=== PATIENT | female | born 1995 | race Caucasian/White ===

== ENCOUNTER 2017-06-09 15:21 | Outpatient (CLI) | payer MEDICAID, OTHER ==
[2017-06-09] MEDS ORDERED: DUONEB *Not for PRN Use IH ONE ×2 (18:25→18:28)
[2017-06-09] MEDS ORDERED: PROVENTIL IH ONE (19:24)
--- NOTE | 2017-06-09 19:33 | Emergency Department Report ---
- General Chief Complaint: Upper Respiratory Infection Stated Complaint: CONGESTION/COLD S/S Time Seen by Provider: 06/09/17 17:52 Source: patient Mode of arrival: Ambulatory Limitations: No Limitations - History of Present Illness Initial Comments: 22 yo female with a past medical history of exercise-induced bronchospasm presents to the hospital currently 23 weeks with complaints of nasal congestion and shortness of breath. Patient states that nasal congestion has been going on for about 1 week and seemed to improve yesterday but then worsened again today. Patient describes shortness of breath as "feeling like I cannot get in enough air". She denies dyspnea on exertion, chest pain, Tenderness, or leg edema. No cough reported. Denies fever. - Related Data Previous Rx's Medication Instructions Recorded Last Taken Type Acetaminophen/Codeine [Tylenol #3] 1 tab PO Q6H PRN #20 tab 11/06/13 Unknown Rx Ibuprofen [Motrin] 400 mg PO Q6H PRN #20 tablet 11/06/13 Unknown Rx Allergies Allergy/AdvReac Type Severity Reaction Status Date / Time No Known Allergies Allergy Unverified 11/06/13 23:33 ED Review of Systems ROS: Stated complaint: CONGESTION/COLD S/S Other details as noted in HPI Comment: All other systems reviewed and negative Other: Constitutional: No fevers chills Eyes: No eye pain visual changes ENT: No ear pain or throat pain Neck: Denies pain Respiratory: As per HPI Cardiovascular: Denies chest pain, palpitations, syncope GI: Denies abdominal pain : Denies dysuria Musculoskeletal: Denies back pain, joint swelling Skin: Denies rash, lesions, erythema Neurologic: Denies headache, numbness, weakness Psychiatric: Denies suicidal ideation, hallucinations ED Past Medical Hx - Past Medical History Hx Asthma: No - Surgical History Past Surgical History?: Yes Hx Appendectomy: Yes - Social History Smoking Status: Never Smoker Substance Use Type: None - Medications Home Medications: Home Medications Medication Instructions Recorded Confirmed Last Taken Type Acetaminophen/Codeine [Tylenol #3] 1 tab PO Q6H PRN #20 tab 11/06/13 Unknown Rx Ibuprofen [Motrin] 400 mg PO Q6H PRN #20 tablet 11/06/13 Unknown Rx ED Physical Exam - General Limitations: No Limitations - Other Other exam information: General: No limitations, patient is alert in no acute distress Head exam: Atraumatic, normocephalic Eyes exam: Normal appearance, pupils equal reactive to light, extraocular movements intact ENT: Moist mucous membrane, nasal congestion Neck exam: Normal inspection, full range of motion, no meningismus nontender Respiratory exam: Clear to auscultation bilateral, no wheezes, rales, crackles Cardiovascular: Normal rate and rhythm, normal heart sounds Abdomen: Soft, nondistended, and nontender, with normal bowel sounds, no rebound, or guarding. Gravid abdomen Extremity: Full range of motion normal inspection no deformity, no calf tenderness or edema Back: Normal Inspection, full range of motion, no tenderness Neurologic: Alert, oriented x3, cranial nerves intact, no motor or sensory deficit Psychiatric: normal affect, normal mood Skin: Warm, dry, intact ED Course Vital Signs 06/09/17 06/09/17 06/09/17 15:40 19:00 19:28 Temperature 98.1 F Pulse Rate 97 H Pulse Rate [ 110 H 82 Bilateral] Respiratory 16 Rate Respiratory 20 15 Rate [Bilateral ] Blood Pressure Blood Pressure 97/41 [Left] O2 Sat by Pulse 97 Oximetry 06/09/17 21:05 Temperature Pulse Rate 120 H Pulse Rate [ Bilateral] Respiratory Rate Respiratory Rate [Bilateral ] Blood Pressure 102/57 Blood Pressure [Left] O2 Sat by Pulse 99 Oximetry - Reevaluation(s) Reevaluation #1: 06/09/17 During ED stay patient describes dyspnea as "feeling like I'm not getting enough air". History of exercise-induced asthma patient so pt was treated with bronchodilators. Initial peak flow was 240. (predictive 431). After DuoNeb patient reported no change and therefore albuterol 5 mg given. Lungs remained clear before and after treatment. After receiving peak flow unchanged remained 250 and patient continues to complain of shortness of breath therefore labs, chest x-ray, and CT angiogram chest ordered at that time to rule out lung pathology. ED Medical Decision Making - Lab Data Result diagrams: 06/09/17 20:28 06/09/17 20:28 Lab Results 06/09/17 06/09/17 06/09/17 Range/Units 20:28 20:28 20:28 WBC 8.7 (4.5-11.0) K/mm3 RBC 2.98 L (3.65-5.03) M/mm3 Hgb 9.4 L (10.1-14.3) gm/dl Hct 26.8 L (30.3-42.9) % MCV 90 (79-97) fl MCH 31 (28-32) pg MCHC 35 H (30-34) % RDW 12.6 L (13.2-15.2) % Plt Count 232 (140-440) K/mm3 Lymph % (Auto) 25.3 (13.4-35.0) % [place] % (Auto) 5.5 (0.0-7.3) % Eos % (Auto) 1.2 (0.0-4.3) % Baso % (Auto) 0.3 (0.0-1.8) % Lymph # 2.2 (1.2-5.4) K/mm3 [place] # 0.5 (0.0-0.8) K/mm3 Eos # 0.1 (0.0-0.4) K/mm3 Baso # 0.0 (0.0-0.1) K/mm3 Seg Neutrophils % 67.7 (40.0-70.0) % Seg Neutrophils # 5.9 (1.8-7.7) K/mm3 PT 13.1 (12.2-14.9) Sec. INR 0.94 (0.87-1.13) Sodium 139 (137-145) mmol/L Potassium 2.4 L* (3.6-5.0) mmol/L Chloride 101.3 (98-107) mmol/L Carbon Dioxide 20 L (22-30) mmol/L Anion Gap 20 mmol/L BUN 7 (7-17) mg/dL Creatinine 0.4 L (0.7-1.2) mg/dL Estimated GFR > 60 ml/min BUN/Creatinine Ratio 18 % Glucose 106 H (65-100) mg/dL Calcium 8.1 L (8.4-10.2) mg/dL Magnesium 1.60 L (1.7-2.3) mg/dL Total Bilirubin 0.20 (0.1-1.2) mg/dL AST 19 (5-40) units/L ALT 16 (7-56) units/L Alkaline Phosphatase 61 (35-129) units/L Total Protein 6.0 L (6.3-8.2) g/dL Albumin 3.5 L (3.9-5) g/dL Albumin/Globulin Ratio 1.4 % - EKG Data -: EKG Interpreted by Me (sinus ) EKG shows normal: sinus rhythm, axis (qrs 65), QRS complexes (81), ST-T waves ( no stemi) Rate: tachycardia (119) - Radiology Data Radiology results: image reviewed Chest x-ray: No acute findings CT angiogram chest: No pulmonary emboli, no infiltrates, bibasilar atelectasis. Benign cyst in the right upper lobe - Medical Decision Making Other differential URI Patient be admitted to the hospital for significant hypokalemia and associated hypomagnesemia. I suspect that dyspnea is secondary to dyspnea since patient did not receive any improvement with bronchodilators and CT angiogram chest is negative. pt sinus tach on monitor after albuterol Meds ordered in the ED liquid potassium 40 mEq, magnesium 2 g IV, potassium chloride 20 mg IV - Differential Diagnosis bronchitis, pneumonia, reactive airway disease, dyspnea , sinusiti Critical Care Time: No Critical care attestation.: If time is entered above; I have spent that time in minutes in the direct care of this critically ill patient, excluding procedure time. ED Disposition Clinical Impression: Nasal congestion, Hypokalemia, Hypomagnesemia, Dyspnea, 23 weeks gestation of , Anemia Disposition: -09 OP ADMIT IP TO THIS HOSP Is pt being admited?: Yes Condition: Stable Time of Disposition: 22:18 (DR Guerra/hosp)
[2017-06-09] MEDS ORDERED: NACL ONE (20:37)
[2017-06-09 20:44] LABS: Basophils % (Auto) 0.3 % (0.0-1.8); Eosinophils % (Auto) 1.2 % (0.0-4.3); Hematocrit 26.8 % (30.3-42.9); Hemoglobin 9.4 gm/dl (10.1-14.3); Mean Corpuscular HGB Conc 35 % (30-34); Mean Corpuscular Hemoglobin 31 pg (28-32); Mean Corpuscular Volume 90 fl (79-97); Platelet Count 232 K/mm3 (140-440); Red Blood Count 2.98 M/mm3 (3.65-5.03); Red Cell Distribution Width 12.6 % (13.2-15.2); White Blood Count 8.7 K/mm3 (4.5-11.0)
[2017-06-09 20:54] LABS: INR 0.94 (0.87-1.13)
[2017-06-09 21:26] LABS: Anion Gap 20 mmol/L; BUN/Creatinine Ratio 18; Blood Urea Nitrogen 7 mg/dL (7-17); Calcium 8.1 mg/dL (8.4-10.2); Carbon Dioxide 20 mmol/L (22-30); Chloride 101.3 mmol/L (98-107); Glucose 106 mg/dL (65-100); Sodium 139 mmol/L (137-145)
--- NOTE | 2017-06-09 21:26 | XRay Report ---
FINAL REPORT EXAM: XR CHEST 1V AP HISTORY: sob, COMPARISON: None available. FINDINGS: Frontal view(s) of the chest obtained. Cardiac silhouette within normal limits. No gross consolidation or effusion. No pneumothorax. IMPRESSION: No grossly acute findings.
[2017-06-09 21:38] LABS: Potassium 2.4 mmol/L (3.6-5.0)
[2017-06-09] MEDS ORDERED: K-DUR PO ONE (21:38)
[2017-06-09] MEDS ORDERED: POTASSIUM CHLORIDE PO ONE (21:41)
--- NOTE | 2017-06-09 21:50 | Cat Scan Report ---
FINAL REPORT EXAM: CT ANGIO CHEST HISTORY: sob, COMPARISON: None available. TECHNIQUE: Contiguous axial images were obtained. Additional sagittal and coronal reformatted images were obtained. Administration of IV contrast given per institution protocol. Images submitted for interpretation. FINDINGS: Heart normal in size. Thoracic aorta normal in caliber. No dissection. No pulmonary embolus. No pathologically enlarged intrathoracic or axillary lymph nodes. Benign pulmonary cyst in the right upper lobe measuring 6 millimeters. Mild atelectasis at the dependent portions of the lungs. No dense consolidation or effusion. Tracheobronchial tree is patent. Visualized upper abdomen is grossly unremarkable. Bony thorax is intact. IMPRESSION: No pulmonary embolus. No acute infiltrates or effusions.
[2017-06-09] MEDS ORDERED: MAGNESIUM SULFATE 2GM/50ML 2 GM/50 ML BAG IV ONE (21:53)
[2017-06-09 22:18] LABS: Alanine Aminotransferase 16 units/L (7-56); Albumin 3.5 g/dL (3.9-5); Albumin/Globulin Ratio 1.4 %; Alkaline Phosphatase 61 units/L (35-129)
[2017-06-09 22:22] LABS: Bilirubin,Direct < 0.2 mg/dL (0-0.2)
[2017-06-09] MEDS ORDERED: ZOFRAN IV ONE (23:10)
[2017-06-10] MEDS: KCL 10MEQ/100ML 10 MEQ/100 ML BAG IV SCH ×2 (01:30→06:46)
[2017-06-10] MEDS ORDERED: NACL 0.9% 250ML 250 ML ONE (02:32)
[2017-06-10] MEDS ORDERED: KCL 10MEQ/100ML 10 MEQ/100 ML BAG IV ONE (05:27)
[2017-06-10] MEDS ORDERED: NACL 0.9% 1000 ML 1,000 ML ONE (05:38)
[2017-06-10] MEDS ORDERED: NACL 0.9% 1000 ML 1,000 ML IV ONE (05:40)
[2017-06-10 07:27] VITALS: BP 104/58
[2017-06-10 07:56] LABS: Alanine Aminotransferase 16 units/L (7-56); Albumin 3.2 g/dL (3.9-5); Albumin/Globulin Ratio 1.2 %; Alkaline Phosphatase 64 units/L (35-129); Bilirubin,Direct < 0.2 mg/dL (0-0.2); Bilirubin,Total < 0.20 mg/dL (0.1-1.2); Total Protein 5.9 g/dL (6.3-8.2)
[2017-06-10] MEDS ORDERED: LACTATED RINGERS 500 ML IV ONE (10:30)
== END 2017-06-10 08:59 | disposition home or self-care (01) ==
LOC: ED 15:21 → TRG 15:21
PROVIDERS: ATTEND Obstetrics & Gynecology
DX: O99.512 Diseases of the respiratory system complicating pregnancy, second trimester (principal); J98.11 Atelectasis; J98.4 Other disorders of lung; J00 Acute nasopharyngitis [common cold]; R06.02 Shortness of breath; R09.89 Other specified symptoms and signs involving the circulatory and respiratory systems; Z3A.23 23 weeks gestation of pregnancy
CPT/HCPCS: 36415; 71010; 71275; 80048; 80074; 83735; 84132; 85025; 85610; 93005; 93010; 94640; 96360; J2405; J3475; J3480; J7030; J7050; Q9967; 96361

== ENCOUNTER 2020-04-06 13:48 | Emergency (ER) | payer OTHER ==
--- NOTE | 2020-04-06 14:47 | Event Note ---
ED Screening Note Date of service: 04/06/20 Time: 14:43 ED Screening Note: 24-year-old female presents as approximately 15 weeks gestation complaining of pelvic cramping with some vaginal spotting x today obgyn; not yet, change in insurance. LMP 12/21/2019 This initial assessment/diagnostic orders/clinical plan/treatment(s) is/are subject to change based on patients health status, clinical progression and re- assessment by fellow clinical providers in the ED. Further treatment and workup at subsequent clinical providers discretion. Patient/guardian urged not to elope from the ED as their condition may be serious if not clinically assessed and managed. Initial orders include: labs us
[2020-04-06 14:49] VITALS: BP 110/60
[2020-04-06 16:00] LABS: Bilirubin,Urine NEG (Negative); Blood,Urine NEG (Negative); Calcium Oxalate Crystals,Urine 1+; Color,Urine Yellow (Yellow); Mucus,Urine 3+ /HPF; Protein,Urine <15 mg/dL mg/dL (Negative); Urobilinogen,Urine < 2.0 mg/dL (<2.0)
[2020-04-06 16:01] LABS: Basophils # (Auto) 0.1 K/mm3 (0.0-0.1); Basophils % (Auto) 0.7 % (0.0-1.8); Eosinophils # (Auto) 0.4 K/mm3 (0.0-0.4); Hematocrit 30.9 % (30.3-42.9); Hemoglobin 10.8 gm/dl (10.1-14.3); Lymphocytes # (Auto) 1.4 K/mm3 (1.2-5.4); Lymphocytes % (Auto) 18.3 % (13.4-35.0); Mean Corpuscular HGB Conc 35 % (30-34); Mean Corpuscular Volume 89 fl (79-97); Monocytes # (Auto) 0.5 K/mm3 (0.0-0.8); Monocytes % (Auto) 6.6 % (0.0-7.3); Platelet Count 262 K/mm3 (140-440); Red Blood Count 3.48 M/mm3 (3.65-5.03); Red Cell Distribution Width 14.1 % (13.2-15.2)
--- NOTE | 2020-04-06 16:53 | Ultrasound Report ---
OBSTETRIC ULTRASOUND INDICATION: pelv pain COMPARISON: No prior relevant imaging studies are available for comparison. TECHNIQUE: Transabdominal imaging was performed. FINDINGS: Single viable intrauterine is identified. Heart rate: 155 bpm. measurements are as follows: Biparietal diameter 2.9 cm, 15 weeks 1 day Head circumference 10.7 cm, 15 weeks 1 day Abdominal circumference 8.3 cm, 14 weeks 5 days Femur length 1.6 cm, 14 weeks 6 days Amniotic fluid index is subjectively within normal limits. No placental abnormalities are seen. Cerv ix is closed measuring approximately 3 cm. CONCLUSION: Single viable intrauterine with sonographic gestational age of 15 weeks, 0 days. Signer Name: Nolan Sher MD Signed: 04/06/2020 4:49 PM Workstation Name: [id number]
--- NOTE | 2020-04-06 17:20 | Emergency Department Report ---
ED Female HPI - General Chief complaint: Vaginal Bleeding Stated complaint: ABD PAINS PREG Time Seen by Provider: 04/06/20 17:13 Source: patient Mode of arrival: Ambulatory Limitations: No Limitations - History of Present Illness Initial comments: 24-year-old female presents emergency department complaining of pelvic pain and cramping which started after her 2-year-old son jumped onto her stomach so she came to emerge department for further evaluation treatment options reports no nausea vomiting no dysuria Complaint: vaginal bleeding (Spotting) Radiation: suprapubic Quality: dull Consistency: constant Improves with: none Worsens with: none Associated Symptoms: vaginal bleeding. denies: abdominal pain, nausea/vomiting, headaches, loss of appetite, dysuria, hematuria, shortness of breath, syncope, weakness - Related Data Previous Rx's Medication Instructions Recorded Last Taken Type Acetaminophen/Codeine [Tylenol #3] 1 tab PO Q6H PRN #20 tab 11/06/13 Unknown Rx Ibuprofen [Motrin] 400 mg PO Q6H PRN #20 tablet 11/06/13 Unknown Rx Allergies Allergy/AdvReac Type Severity Reaction Status Date / Time No Known Allergies Allergy Unverified 11/06/13 23:33 ED Review of Systems ROS: Stated complaint: ABD PAINS PREG Other details as noted in HPI Comment: All other systems reviewed and negative ED Past Medical Hx - Past Medical History Previous Medical History?: No Hx Asthma: No - Surgical History Past Surgical History?: Yes Hx Appendectomy: Yes - Social History Smoking Status: Never Smoker Substance Use Type: None - Medications Home Medications: Home Medications Medication Instructions Recorded Confirmed Last Taken Type Acetaminophen/Codeine [Tylenol #3] 1 tab PO Q6H PRN #20 tab 11/06/13 Unknown Rx Ibuprofen [Motrin] 400 mg PO Q6H PRN #20 tablet 11/06/13 Unknown Rx ED Physical Exam - General Limitations: No Limitations General appearance: alert, in no apparent distress - Head Head exam: Present: atraumatic, normocephalic - Eye Eye exam: Present: normal appearance, PERRL, EOMI Pupils: Present: normal accommodation - ENT ENT exam: Present: normal exam, normal orophraynx, mucous membranes moist, TM's normal bilaterally - Neck Neck exam: Present: normal inspection, full ROM - Respiratory Respiratory exam: Present: normal lung sounds bilaterally. Absent: respiratory distress, wheezes, rhonchi - Cardiovascular Cardiovascular Exam: Present: regular rate, normal rhythm. Absent: systolic murmur, diastolic murmur, rubs, gallop - GI/Abdominal GI/Abdominal exam: Present: soft, normal bowel sounds - Extremities Exam Extremities exam: Present: normal inspection - Back Exam Back exam: Present: normal inspection - Neurological Exam Neurological exam: Present: alert, oriented X3 - Psychiatric Psychiatric exam: Present: normal affect, normal mood - Skin Skin exam: Present: warm, dry, intact, normal color. Absent: rash ED Course Vital Signs 04/06/20 04/06/20 13:57 14:43 Temperature 97.5 F L 98.5 F Pulse Rate 104 H Respiratory 18 Rate Blood Pressure 110/60 O2 Sat by Pulse 98 Oximetry ED Medical Decision Making - Lab Data Result diagrams: 04/06/20 15:21 - Radiology Data Radiology results: report reviewed Referring Physician:TANYA MORALESPatient Name:JASON FUNEZPatient ID:[id number] of :[id number]:FemaleAccession:[id number] Date:[id number] Status:Finalized Findings [facility] [address] [place] [address] Ultrasound Report Signed Patient: JASON FUNEZ MR#: [id number] : 1995 Acct:[id number] Age/Sex: 24 / F ADM Date: 04/06/20 Loc: ED Attending Dr: Ordering Physician: MAYDA ROSE Date of Service: 04/06/20 Procedure(s): US OB >= 14 weeks Fetus Accession Number(s): [id number] cc: MAYDA ROSE OBSTETRIC ULTRASOUND INDICATION: pelv pain COMPARISON: No prior relevant imaging studies are available for comparison. TECHNIQUE: Transabdominal imaging was performed. FINDINGS: Single viable intrauterine is identified. Heart rate: 155 bpm. measurements are as follows: Biparietal diameter 2.9 cm, 15 weeks 1 day Head circumference 10.7 cm, 15 weeks 1 day Abdominal circumference 8.3 cm, 14 weeks 5 days Femur length 1.6 cm, 14 weeks 6 days Amniotic fluid index is subjectively within normal limits. No placental abnormalities are seen. Cervix is closed measuring approximately 3 cm. CONCLUSION: Single viable intrauterine with sonographic gestational age of 15 weeks, 0 days. Signer Name: Nolan Sher MD Signed: 04/06/2020 4:49 PM Workstation Name: [id number] Transcribed By: ROGER Dictated By: Nolan Sher MD Electronically Authenticated By: Nolan Sher MD Signed Date/Time: 04/06/201648 DD/ 46 TD/TT: Critical care attestation.: If time is entered above; I have spent that time in minutes in the direct care of this critically ill patient, excluding procedure time. ED Disposition Clinical Impression: Pelvic pain Disposition: DC-01 TO HOME OR SELFCARE Is pt being admited?: No Does the pt Need Aspirin: No Condition: Stable Instructions: Threatened Miscarriage (ED), Abdominal Pain (ED) Referrals: PRIMARY CARE, [Primary Care Provider] - 3-5 Days [facility] [Provider Group] - 3-5 Days
== END 2020-04-06 17:59 | disposition home or self-care (01) ==
LOC: ED 13:48
DX: O26.892 Other specified pregnancy related conditions, second trimester (principal); R10.2 Pelvic and perineal pain; Z3A.15 15 weeks gestation of pregnancy; Z90.49 Acquired absence of other specified parts of digestive tract; Z79.1 Long term (current) use of non-steroidal anti-inflammatories (NSAID); Z79.899 Other long term (current) drug therapy
CPT/HCPCS: 36415; 76805; 81001; 84702; 84703; 85025; 86900; 86901

== ENCOUNTER 2020-09-24 07:04 | Inpatient (IN) | payer MEDICAID ==
[2020-09-24] MEDS ORDERED: ePHEDrine SULFATE 50 MG/1 ML INJ IV PRN (08:08)
[2020-09-24] MEDS ORDERED: TERBUTALINE 1 MG/1 ML INJ SUB-Q PRN (08:08)
[2020-09-24] MEDS ORDERED: fentaNYL 100 MCG/2 ML INJ IV PRN (08:08)
[2020-09-24] MEDS ORDERED: AMPICILLIN/NS 2 GM/100 ML 2 GM/100 ML BAG IV ONE (08:08)
[2020-09-24] MEDS ORDERED: LIDOCAINE (2%) 20 MG/1 ML VIAL 20 ML MDV INFILTRATI ONE (08:08)
[2020-09-24] MEDS ORDERED: LACTATED RINGERS 1,000 ML IV SCH (08:15)
[2020-09-24 08:26] LABS: Hematocrit 31.9 % (30.3-42.9); Hemoglobin 10.8 gm/dl (10.1-14.3); Mean Corpuscular HGB Conc 34 % (30-34); Mean Corpuscular Volume 86 fl (79-97); Platelet Count 186 K/mm3 (140-440); Red Blood Count 3.73 M/mm3 (3.65-5.03); Red Cell Distribution Width 17.2 % (13.2-15.2)
[2020-09-24] MEDS ORDERED: OXYTOCIN DRIP 30 UNITS/500 ML BAG IV SCH (09:00)
--- NOTE | 2020-09-24 09:12 | History and Physical Report ---
History of Present Illness Date of examination: 09/24/20 Date of admission: 09/24/2020 Chief complaint: Leaking of water and contractions History of present illness: presents to L&D in active labor with leaking of clear fluid from vagina. Patient states she receives care at [facility]. No records are available but they have been requested. EDC 09/26/2020 per patient report. Patient denies any problems during the . History of previous vaginal delivery. Medications: PNV and iron supplements. Past History Past Medical History: asthma Past Surgical History: appendectomy [facility] History: denies: chlamydia, gonorrhea, hepatitis B, hepatitis C, herpes, HIV, syphilis, trichomonas Family/Genetic History: none Social history: lives with family, full code. denies: smoking, alcohol abuse, prescription drug abuse, IV drug use - Obstetrical History Expected Date of Delivery: 09/26/20 Actual Gestation: 39 Week(s) 5 Day(s) : 3 Para: 1 Hx # Term Pregnancies: 1 Number of Pregnancies: 0 Spontaneous Abortions: 1 Induced : 0 Number of Living Children: 1 Medications and Allergies Allergies Allergy/AdvReac Type Severity Reaction Status Date / Time No Known Allergies Allergy Unverified 11/06/13 23:33 Home Medications Medication Instructions Recorded Confirmed Last Taken Type Acetaminophen/Codeine [Tylenol #3] 1 tab PO Q6H PRN #20 tab 11/06/13 09/24/20 Unknown Rx Ibuprofen [Motrin] 400 mg PO Q6H PRN #20 tablet 11/06/13 09/24/20 Unknown Rx Active Meds: Active Medications Ephedrine Sulfate (Ephedrine Sulfate 50 Mg/1 Ml Inj) 10 mg IV Q2M PRN PRN Reason: Hypotension Fentanyl (Fentanyl 100 Mcg/2 Ml Inj) 100 mcg IV Q2H PRN PRN Reason: Pain,Severe (7-10) LABOR PAIN Lactated Ringer's (Lactated Ringers) 1,000 mls @ 125 mls/hr IV DIRECT SUSIE Last Admin: 09/24/20 08:46 Dose: 125 mls/hr Documented by: Oxytocin/Sodium Chloride (Pitocin/Ns 30 Unit/500ml) 30 units in 500 mls @ 40 mls/hr IV TITR SUSIE; Protocol Ampicillin Sodium (Ampicillin/Ns 1 Gm/50 Ml) 1 gm in 50 mls @ 100 mls/hr IV Q4H SUSIE; Protocol Mineral Oil (Mineral Oil 30 Ml Oral Liqd) 30 ml PO QHS PRN PRN Reason: Constipation Terbutaline Sulfate (Terbutaline 1 Mg/1 Ml Inj) 0.25 mg SUB-Q ONCE PRN PRN Reason: Hyperstimulation/Hypertonicity Review of Systems All systems: negative (contractions and leaking of fluid from vagina) - Vital Signs Vital signs: Vital Signs Temp Pulse Resp BP 98.5 F 94 H 16 108/68 09/24/20 07:51 09/24/20 07:51 09/24/20 07:51 09/24/20 07:51 Temp Pulse Resp BP Pulse Ox 98.5 F 94 H 16 108/68 09/24/20 07:51 09/24/20 07:52 09/24/20 07:51 09/24/20 07:52 - Physical Exam Abdomen: Positive: normal appearance, soft. Negative: distention, tenderness, guarding, rigidity Genitourinary (Female): Positive: normal external genitalia, normal perenium. Negative: perineal/vulvar lesions (no lesions noted on careful exam with bright light upon admission) Vagina: Positive: other (clear fluid) Uterus: Positive: enlarged. Negative: tender Anus/Rectum: Positive: normal perianal skin Extremities: Positive: normal. Negative: tenderness, edema - Obstetrical FHR: category 1 Uterine Contraction Monitor Mode: External Cervical Dilatation: 4.5 Cervical Effacement Percentage: 80 station: -2 Uterine Contraction Pattern: Regular Uterine Contraction Intensity: Moderate Results Result Diagrams: 09/24/20 08:05 Abnormal lab results 09/24/20 Range/Units 08:05 RDW 17.2 H (13.2-15.2) % All other labs normal. Assessment and Plan A: at 39 weeks, 5 days gestation. SROM. Active labor. GBS unknown. No records available. P: Admit. EFM. GBS prophylaxis. Obtain records.
[2020-09-24 10:32] LABS: Hepatitis C Virus Antibody Non-Reactive (NonReactive)
[2020-09-24] MEDS ORDERED: AMPICILLIN/NS 1 GM/50 ML 1 GM/50 ML BAG IV SCH (12:14)
[2020-09-24] MEDS ORDERED: MINERAL OIL 30 ML ORAL LIQD ONE (15:12)
[2020-09-24] MEDS ORDERED: LANOLIN/ZINC/DIMETHICONE (LANSINOH) 7 GM TP PRN (15:51)
[2020-09-24] MEDS ORDERED: MAGNESIUM HYDROXIDE (MOM) ORAL LIQD UDC PO PRN (15:51)
[2020-09-24] MEDS ORDERED: WITCH HAZEL/ GLYCERIN PAD TP PRN (15:51)
--- NOTE | 2020-09-24 15:52 | Procedure Note ---
OB Delivery Note - Delivery Date of Delivery: 09/24/20 - Vaginal Delivery presentation: vertex Delivery position: OA Intrapartum events: none Delivery induction: none Delivery monitor: external FHT, external uterine Route of delivery: Delivery placenta: spontaneous Delivery cord: 3 umbilical vessels Episiotomy: none Delivery laceration: none Anesthesia: none Delivery comments: Spontaneous vaginal delivery at 15:12 of liveborn female weighing 3.079 kg over intact perineum with apgars of 8/9. was atraumatic; nuchal cord times 1, manually reduced. Baby placed skin to skin with mom immediately after delivery. Spontaneous cry and respirations. Baby bulb suctioned and dried with warm towels. 3 vessel cord double clamped and cut. Baby taken to radiant warmer for further suctioning. Spontaneous delivery of intact placenta and membranes. EBL 200 cc. Pitocin to IV fluids after delivery of placenta. Fundus firm and midline. No lacerations noted. Vaginal sweep negative. Sponge count correct. Mother and baby stable.
[2020-09-24] MEDS: IBUPROFEN 600 MG TAB PO SCH ×2 (16:15→21:30)
--- NOTE | 2020-09-24 16:42 | Event Note ---
Date: 09/24/20 Records sent from office are wrong records and patient is 39 weeks, 5 days gestation and her stated EDC is 09/26/2020.
[2020-09-24] MEDS: ACETAMINOPHEN 325 MG TAB PO PRN (18:37)
[2020-09-24] MEDS ORDERED: MINERAL OIL 30 ML ORAL LIQD PO PRN (22:00)
[2020-09-25] MEDS: ACETAMINOPHEN 325 MG TAB PO PRN (04:07)
[2020-09-25 05:01] LABS: Hematocrit 30.2 % (30.3-42.9); Hemoglobin 10.4 gm/dl (10.1-14.3)
[2020-09-25] MEDS: IBUPROFEN 600 MG TAB PO SCH ×3 (06:01→17:04)
--- NOTE | 2020-09-25 10:43 | Progress Note ---
Assessment and Plan A: day 1 S/P . Anemia. P: Supplement with iron. Plan to discharge patient home tomorrow AM if she continues to do well. Subjective - Subjective Date of service: 09/25/20 Interval history: day 1 S/P . Patient reports: appetite normal, voiding normally, pain well controlled, flatus, ambulating normally, no dizzy ambulation, no nauseated [place]: doing well Objective - Vital Signs Latest vital signs: Vital Signs Temp Pulse Resp BP BP Pulse Ox 09/25/20 08:34 98.2 F 71 16 103/56 97 09/25/20 07:01 18 09/25/20 06:01 18 09/25/20 05:07 18 09/25/20 04:07 18 09/25/20 00:24 97.9 F 84 18 92/52 97 09/24/20 22:30 18 09/24/20 21:30 18 09/24/20 21:06 98.4 F 84 18 108/72 96 09/24/20 19:37 18 09/24/20 17:37 98.7 F 90 16 110/62 09/24/20 17:20 98.1 F 09/24/20 16:57 98 H 100 09/24/20 16:54 75 103/58 09/24/20 16:52 77 98 09/24/20 16:47 84 99 09/24/20 16:42 79 99 09/24/20 16:39 95 H 103/67 09/24/20 16:37 83 98 09/24/20 16:32 83 98 09/24/20 16:27 86 99 09/24/20 16:24 93 H 114/69 09/24/20 16:22 97 H 98 09/24/20 16:17 98 H 98 09/24/20 16:15 15 09/24/20 16:12 85 99 09/24/20 16:09 93 H 112/69 09/24/20 16:07 94 H 97 09/24/20 16:02 90 99 09/24/20 15:57 96 H 98 09/24/20 15:54 99 H 108/61 09/24/20 15:52 92 H 99 09/24/20 15:47 89 98 09/24/20 15:42 90 98 02/20/21 15:39 93 H 108/61 0220/21 15:37 93 H 98 0220/21 15:32 94 H 98 0220/21 15:30 98.4 F 18 02/21 15:27 105 H 98 0220/21 15:24 96 H 111/59 0220/21 15:22 110 H 100 0220/21 15:17 92 H 99 0220/21 15:15 95 H 121/57 0220/21 15:12 95 H 100 0220/21 15:07 87 100 0220/21 15:02 96 H 100 09/24/21 14:57 85 98 02/21 14:52 98 H 100 09/24/ 14:47 88 119/53 99 02/21 14:42 102 H 100 21 14:37 96 H 100 09/24/20 14:32 88 100 09/24/ 14:27 89 99 09/24/ 14:22 95 H 99 09/24/ 14:18 81 95/53 02/21 14:17 81 100 09/24/21 14:12 90 98 09/24/ 14:07 101 H 99 09/24/21 14:02 86 99 09/24/21 13:57 80 107/60 0220/21 13:56 82 99 09/24/21 13:38 102 H 96 09/24/21 13:33 87 99 09/24/21 13:30 101 H 92 20/21 13:28 80 98 0220/21 13:24 105 H 92 20/21 13:23 91 H 97 0220/21 13:18 91 H 97 20/21 13:16 88 95/53 0220/21 13:13 96 H 99 0220/21 13:08 90 98 0220/21 13:03 85 99 0220/21 13:00 98.1 F 09/24/20 12:58 95 H 99 0220/21 12:57 74 93 20/21 12:53 88 100 0220/21 12:48 85 98 0220/21 12:45 93 H 110/67 0220/21 12:43 96 H 100 0220/21 12:38 99 H 100 0220/21 12:33 90 99 09/24/20 12:28 96 H 98 09/24/20 12:23 90 99 09/24/20 12:18 92 H 99 09/24/20 12:16 86 106/53 09/24/20 12:13 107 H 98 09/24/20 12:10 99 H 94 09/24/20 12:08 84 99 09/24/20 12:03 87 98 09/24/20 11:58 89 98 09/24/20 11:55 91 H 94 09/24/20 11:53 82 99 09/24/20 11:48 89 98 09/24/20 11:37 104 H 98 09/24/20 11:32 94 H 96 09/24/20 11:27 86 99 09/24/20 11:22 91 H 98 09/24/20 11:17 94 H 99 09/24/20 11:16 98 H 120/64 09/24/20 11:12 76 99 09/24/20 11:07 96 H 98 09/24/20 11:02 91 H 98 09/24/20 11:00 98.8 F 09/24/20 10:57 91 H 98 09/24/20 10:52 99 H 97 09/24/20 10:47 95 H 108/68 98 09/24/20 10:42 91 H 98 Intake and Output 09/24/20 09/25/20 09/25/20 23:59 07:59 15:59 Intake Total 240 720 120 Output Total 500 Balance 240 220 120 Intake: Oral 240 720 120 Output: Urine 500 Void 500 Other: Total, Intake Amount 240 480 120 Total, Output Amount 500 # Voids Void 1 1 - Exam Cardiovascular: Present: Regular rate Lungs: Present: Clear to auscultation Abdomen: Present: normal appearance, soft, normal bowel sounds. Absent: distention, tenderness, guarding, rigidity Uterus: Present: normal, firm, fundal height below umbilicus. Absent: bogginess, tenderness Extremities: Present: normal. Absent: tenderness, edema - Labs Labs: Abnormal lab results 09/25/20 Range/Units 04:06 Hct 30.2 L (30.3-42.9) %
[2020-09-25] MEDS ORDERED: FERROUS SULFATE 325 MG TAB PO SCH (11:00)
--- NOTE | 2020-09-25 17:51 | Discharge Summary ---
Providers - Providers Date of Admission: 09/24/20 08:09 Date of discharge: 09/25/20 Attending physician: TOSHIA BARCLAY JR, MD Primary care physician: TOSHIA BARCLAY JR, MD Hospitalization Reason for admission: active labor, rupture of membranes Delivery: Episiotomy: none Laceration: none Other procedures: none complications: none Discharge diagnosis: IUP at term delivered [place] baby: female Pertinent studies: Labs Hospital course: Stable hospital course Condition at discharge: Good Disposition: DC-01 TO HOME OR SELFCARE - Discharge Diagnoses (1) Term delivered Status: Acute (2) Anemia Status: Acute Plan - Provider Discharge Summary Activity: routine, no sex for 6 weeks, no heavy lifting 4 weeks, no strenuous exercise Diet: routine Instructions: routine Additional instructions: Continue taking your vitamins and iron supplements at home. Call your doctor immediately for: * Fever > 100.5 * Heavy vaginal bleeding ( >1 pad per hour) * Severe persistent headache * Shortness of breath * Reddened, hot, painful area to leg or breast - Follow up plan Follow up: TOSHIA BARCLAY JR, MD [Primary Care Provider] - 6 Weeks
[2020-09-25 18:39] VITALS: BP 105/61
== END 2020-09-25 18:40 | disposition home or self-care (01) | DRG 775 ==
LOC: TRG 07:04 → APU 07:17 → TRG 08:09 → LD 08:09 → OB 17:38
PROVIDERS: ADMIT Obstetrics & Gynecology; ATTEND Obstetrics & Gynecology
PROC: 10E0XZZ Delivery of Products of Conception, External Approach (ICD-10-PCS; principal; 2020-09-24)
DX: O69.81X0 Labor and delivery complicated by cord around neck, without compression, not applicable or unspecified (principal); O99.02 Anemia complicating childbirth; J45.909 Unspecified asthma, uncomplicated; O99.52 Diseases of the respiratory system complicating childbirth; Z20.822 Contact with and (suspected) exposure to COVID-19; Z3A.39 39 weeks gestation of pregnancy; Z37.0 Single live birth; Z79.899 Other long term (current) drug therapy; Z90.49 Acquired absence of other specified parts of digestive tract
CPT/HCPCS: 36415; 83036; 85014; 85018; 85027; 86592; 86706; 86762; 86803; 86850; 86900; 86901; 87806; G0378; A6250; J0290; J7120; U0003